=== PATIENT | male | born 1985 | race Caucasian/White ===

== ENCOUNTER 2017-01-26 12:52 | Outpatient (CLI) | payer MEDICAID | END 2017-01-26 12:53 | disposition home or self-care (01) | DX: E55.9 Vitamin D deficiency, unspecified (principal); Z79.899 Other long term (current) drug therapy ==

== ENCOUNTER 2017-07-28 20:14 | Outpatient (CLI) | payer MEDICAID ==
[2017-07-28 19:13] LABS: MEAN CORPUSCULAR VOLUME 87.2 fL (80.0-94.0); MEAN PLATELET VOLUME 9.3 fL (7.4-11.4); NUCLEATED RED BLOOD CELLS AUTO 0.1 /100WBC
[2017-07-28 19:43] LABS: ALBUMIN/GLOBULIN RATIO 1.9 (1.0-2.2); BILIRUBIN,TOTAL 0.5 mg/dL (0.2-1.0); BUN - BLOOD UREA NITROGEN 9 mg/dL (6-20); CALCIUM 9.9 mg/dL (8.5-10.3); CARBON DIOXIDE - CO2 30 mmol/L (21-32); CHLORIDE 103 mmol/L (101-111); CHOL/HDL RATIO 4.3 (<5.0); CHOLESTEROL 162 mg/dL; CREATININE 0.9 mg/dL (0.6-1.2); GFR - MDRD 98 (>89); GLUCOSE 86 mg/dL (70-100); HDL CHOLESTEROL 38 mg/dL; LDL/HDL RATIO 1.7 (<3.6); POTASSIUM 3.7 mmol/L (3.5-5.0); SODIUM 141 mmol/L (135-145); TRIGLYCERIDES 290 mg/dL; VLDL CHOLESTEROL 58 mg/dL
[2017-07-28 19:44] LABS: BASOPHILS % (AUTO) 0.6 %; EOSINOPHILS # (AUTO) 0.2 10^3/uL (0.0-0.7); EOSINOPHILS % (AUTO) 3.1 %; HCT - HEMATOCRIT 44.9 % (42.0-52.0); HGB - HEMOGLOBIN 15.6 g/dL (14.0-18.0); LYMPHOCYTES # (AUTO) 2.1 10^3/uL (1.5-3.5); LYMPHOCYTES % (AUTO) 36.1 %; MEAN CORPUSCULAR HEMOGLOBIN 30.2 pg (27.0-31.0); MEAN CORPUSCULAR HGB CONC 34.6 g/dL (32.0-36.0); MONOCYTES # (AUTO) 0.6 10^3/uL (0.0-1.0); MONOCYTES % (AUTO) 10.1 %; NEUTROPHILS # (AUTO) 2.9 10^3/uL (1.5-6.6); NEUTROPHILS % (AUTO) 50.1 %; RED BLOOD COUNT 5.15 10^6/uL (4.70-6.10); RED CELL DISTRIBUTION WIDTH 12.4 % (12.0-15.0); UNCORRECTED WHITE BLOOD COUNT 5.8 x10^3/uL; WHITE BLOOD COUNT 5.8 x10^3/uL (4.8-10.8)
== END 2017-07-28 20:15 | disposition home or self-care (01) ==
LOC: LAB.N 20:14
PROVIDERS: ATTEND Physician Assistant
DX: Z00.00 Encounter for general adult medical examination without abnormal findings (principal)
CPT/HCPCS: 36415; 80050; 80061

== ENCOUNTER 2019-02-04 12:34 | Outpatient (CLI) | payer MEDICAID ==
[2019-02-04 19:14] LABS: BASOPHILS % (AUTO) 0.7 %; EOSINOPHILS # (AUTO) 0.2 10^3/uL (0.0-0.7); EOSINOPHILS % (AUTO) 3.6 %; HGB - HEMOGLOBIN 16.5 g/dL (14.0-18.0); LYMPHOCYTES # (AUTO) 1.6 10^3/uL (1.5-3.5); LYMPHOCYTES % (AUTO) 31.5 %; MEAN CORPUSCULAR HEMOGLOBIN 29.3 pg (27.0-31.0); MEAN CORPUSCULAR HGB CONC 33.9 g/dL (32.0-36.0); MEAN CORPUSCULAR VOLUME 86.3 fL (80.0-94.0); MEAN PLATELET VOLUME 9.5 fL (7.4-11.4); MONOCYTES # (AUTO) 0.6 10^3/uL (0.0-1.0); MONOCYTES % (AUTO) 11.7 %; NEUTROPHILS # (AUTO) 2.7 10^3/uL (1.5-6.6); NEUTROPHILS % (AUTO) 52.5 %; PLT - PLATELET COUNT 194 10^3/uL (130-450); RED BLOOD COUNT 5.65 10^6/uL (4.70-6.10); RED CELL DISTRIBUTION WIDTH 12.7 % (12.0-15.0); WHITE BLOOD COUNT 5.1 x10^3/uL (4.8-10.8)
[2019-02-04 19:47] LABS: ALBUMIN 4.6 g/dL (3.2-5.5); ALBUMIN/GLOBULIN RATIO 1.6 (1.0-2.2); BILIRUBIN,TOTAL 0.8 mg/dL (0.2-1.0); CALCIUM 9.2 mg/dL (8.5-10.3); CREATININE 0.9 mg/dL (0.6-1.2); TOTAL PROTEIN 7.4 g/dL (6.7-8.2)
[2019-02-04 20:00] LABS: THYROID STIMULATING HORMONE 1.46 uIU/mL (0.34-5.60)
[2019-02-04 20:11] LABS: FOLATE 11.93 ng/mL (5.90 - >24.8)
== END 2019-02-04 23:59 | disposition home or self-care (01) ==
LOC: LAB.N 12:34
PROVIDERS: ATTEND Nurse Practitioner
DX: R53.83 Other fatigue (principal); E55.9 Vitamin D deficiency, unspecified
CPT/HCPCS: 36415; 80050; 82306; 82607; 82746

== ENCOUNTER 2019-12-14 08:57 | Emergency (ER) | payer MEDICAID ==
[2019-12-14 09:12] VITALS: BP 114/110
--- NOTE | 2019-12-14 09:24 | ED Physician Documentation ---
PD HPI LOWER EXT INJURY - Stated complaint Stated Complaint: L BIG TOE PX - Chief complaint Chief Complaint: Ext Problem - History obtained from History obtained from: Patient - History of Present Illness PD HPI LOW EXT INJURY LOCATION: Left, Toe (great) Type of injury: Other (felt there was ingrown nail, with tenderness and pain. Tried to trim nail, but developed redness and swelling of the area.) Where injury occurred: Home Timing - onset: How many weeks ago (1) Timing - duration: Weeks (1) Timing - details: Gradual onset, Still present Worsened by: Palpating Associated symptoms: Swelling, Discolored Similar symptoms before: Has not had sx before Review of Systems Constitutional: denies: Fever, Chills Neurologic: denies: Focal weakness, Numbness PD PAST MEDICAL HISTORY - Past Medical History Respiratory: Asthma Psych: Panic attacks - Past Surgical History Past Surgical History: No - Present Medications Home Medications: Ambulatory Orders Medication Instructions Recorded Confirmed Albuterol Sulfate [Ventolin Hfa] 1 puffs INH DAILY 04/24/16 06/04/16 Fluticasone 44 Mcg [Flovent] 1 puffs INH DAILY 04/24/16 06/04/16 Propranolol [Inderal] 20 mg PO BID 04/24/16 06/04/16 Lorazepam [Ativan] 1 mg PO Q8HR PRN #20 tablet 06/04/16 Doxycycline Monohydrate 100 mg PO BID #14 tablet 12/14/19 Ibuprofen [Motrin] 600 mg PO TID PRN #25 tab 12/14/19 Mupirocin 1 applic TP TID #15 g 12/14/19 - Allergies Allergies/Adverse Reactions: Allergies Allergy/AdvReac Type Severity Reaction Status Date / Time Penicillins Allergy Rash Verified 12/14/19 09:12 - Social History Does the pt smoke?: No Smoking Status: Never smoker Does the pt drink ETOH?: No Does the pt have substance abuse?: No - Immunizations Immunizations are current?: Yes PD ED PE NORMAL - Vitals Vital signs reviewed: Yes - General General: Alert and oriented X 3, No acute distress, Well developed/nourished - Derm Derm: Normal color, Warm and dry - Extremities Extremities: Other (left great toe with redness and swelling around medial nail corner, with redness toward the IP joint area. No discharge. Nail corner is slightly ingrown still. ) - Neuro Neuro: No motor deficit, No sensory deficit Results - Vitals Vitals: Vital Signs - 24 hr 12/14/19 09:09 Temperature 37.0 C Heart Rate 116 H Respiratory 20 Rate Blood Pressure 114/110 H O2 Saturation 96 Oxygen O2 Source Room air PD MEDICAL DECISION MAKING - ED course Complexity details: considered differential (there was still some small ingrown part of nail to side, and was trimmed out with simple scissors. ), d/w patient Departure - Departure Disposition: Home, Self Care Clinical Impression: Paronychia Cellulitis, toe Qualifiers: Laterality: left Qualified Code(s): L03.032 - Cellulitis of left toe Condition: Stable Record reviewed to determine appropriate education?: Yes Instructions: ED Paronychia Ch Prescriptions: Doxycycline Monohydrate 100 mg PO BID #14 tablet Ibuprofen [Motrin] 600 mg PO TID PRN #25 tab PRN Reason: Pain Mupirocin 1 applic TP TID #15 g Comments: Warm soaks or towels to 3 times a day for the toe and apply some mupirocin antibiotic ointment. Ibuprofen 2-3 times a day for pain and inflammation. Add Tylenol if needed. Doxycycline antibiotic twice daily for for 5 days till this seems all better. Recheck if not improved over the next few days. Discharge Date/Time: 12/14/19 11:04
[2019-12-14] MEDS ORDERED: ACETAMINOPHEN 325 MG TABLET PO STA (09:57)
[2019-12-14] MEDS ORDERED: DOXYCYCLINE 100 MG TABLET PO STA (09:57)
[2019-12-14] MEDS ORDERED: IBUPROFEN 600 MG TABLET PO STA (09:57)
[2019-12-14] MEDS ORDERED: MUPIROCIN 2% OINT 1 GM TOP STA (09:58)
== END 2019-12-14 11:04 | disposition home or self-care (01) ==
LOC: ED 08:57
DX: L03.032 Cellulitis of left toe (principal); L60.0 Ingrowing nail; Z88.0 Allergy status to penicillin
CPT/HCPCS: 99283; A9270

== ENCOUNTER 2020-01-09 10:52 | Outpatient (CLI) | payer MEDICAID ==
[2020-01-09 19:05] LABS: BASOPHILS % (AUTO) 0.7 %; EOSINOPHILS # (AUTO) 0.2 10^3/uL (0.0-0.7); EOSINOPHILS % (AUTO) 3.1 %; HGB - HEMOGLOBIN 15.8 g/dL (14.0-18.0); LYMPHOCYTES # (AUTO) 2.1 10^3/uL (1.5-3.5); LYMPHOCYTES % (AUTO) 39.3 %; MEAN CORPUSCULAR HEMOGLOBIN 28.1 pg (27.0-31.0); MEAN CORPUSCULAR HGB CONC 32.4 g/dL (32.0-36.0); MEAN CORPUSCULAR VOLUME 86.7 fL (80.0-94.0); MEAN PLATELET VOLUME 11.1 fL (7.4-11.4); MONOCYTES # (AUTO) 0.5 10^3/uL (0.0-1.0); MONOCYTES % (AUTO) 9.8 %; NEUTROPHILS # (AUTO) 2.5 10^3/uL (1.5-6.6); NEUTROPHILS % (AUTO) 46.7 %; PLT - PLATELET COUNT 230 10^3/uL (130-450); RED BLOOD COUNT 5.63 10^6/uL (4.70-6.10); RED CELL DISTRIBUTION WIDTH 13.5 % (12.0-15.0); WHITE BLOOD COUNT 5.4 x10^3/uL (4.8-10.8)
[2020-01-09 19:27] LABS: ALBUMIN 4.5 g/dL (3.2-5.5); ALBUMIN/GLOBULIN RATIO 1.7 (1.0-2.2); BILIRUBIN,TOTAL 0.6 mg/dL (0.2-1.0); TOTAL PROTEIN 7.2 g/dL (6.7-8.2)
== END 2020-01-09 23:59 | disposition home or self-care (01) ==
LOC: LAB.N 10:52
PROVIDERS: ATTEND Nurse Practitioner Gerontology
DX: Z00.00 Encounter for general adult medical examination without abnormal findings (principal); E55.9 Vitamin D deficiency, unspecified; R53.83 Other fatigue; K21.9 Gastro-esophageal reflux disease without esophagitis
CPT/HCPCS: 36415; 80053; 82306; 85025

== ENCOUNTER 2020-11-19 08:00 | Outpatient (CLI) | payer MEDICAID ==
[2020-11-19 18:03] LABS: BASOPHILS % (AUTO) 0.4 %; EOSINOPHILS # (AUTO) 0.2 10^3/uL (0.0-0.7); EOSINOPHILS % (AUTO) 3.4 %; HGB - HEMOGLOBIN 16.5 g/dL (14.0-18.0); LYMPHOCYTES # (AUTO) 1.7 10^3/uL (1.5-3.5); LYMPHOCYTES % (AUTO) 29.5 %; MEAN CORPUSCULAR HEMOGLOBIN 30.4 pg (27.0-31.0); MEAN CORPUSCULAR VOLUME 92.3 fL (80.0-94.0); MEAN PLATELET VOLUME 10.6 fL (7.4-11.4); MONOCYTES # (AUTO) 0.7 10^3/uL (0.0-1.0); MONOCYTES % (AUTO) 12.9 %; NEUTROPHILS % (AUTO) 53.6 %; PLT - PLATELET COUNT 222 10^3/uL (130-450); RED BLOOD COUNT 5.42 10^6/uL (4.70-6.10); RED CELL DISTRIBUTION WIDTH 12.6 % (12.0-15.0); WHITE BLOOD COUNT 5.6 x10^3/uL (4.8-10.8)
[2020-11-19 18:22] LABS: ALBUMIN 4.5 g/dL (3.2-5.5); ALBUMIN/GLOBULIN RATIO 1.5 (1.0-2.2); BILIRUBIN,TOTAL 0.5 mg/dL (0.2-1.0); CREATININE 0.9 mg/dL (0.6-1.2); CRP - C-REACTIVE PROTEIN 1.7 mg/dL (0-1.0); TOTAL PROTEIN 7.5 g/dL (6.7-8.2)
== END 2020-11-19 08:01 | disposition home or self-care (01) ==
LOC: LAB.WCP 08:00
PROVIDERS: ATTEND Family Medicine
DX: G43.909 Migraine, unspecified, not intractable, without status migrainosus (principal); E55.9 Vitamin D deficiency, unspecified
CPT/HCPCS: 36415; 80053; 82306; 85025; 85651; 86140

== ENCOUNTER 2022-01-31 13:26 | Outpatient (CLI) | payer MEDICAID ==
--- NOTE | 2022-01-31 16:42 | XRAY Report ---
PROCEDURE: Lumbar Spine 2 View INDICATIONS: BACK PAIN, LUMBAR TECHNIQUE: 3 views of the lumbar spine were acquired. COMPARISON: None. FINDINGS: Bones: 5 pap-yon-aeasins vertebrae are present. There is normal bony alignment. No vertebral body compression fractures. No suspicious bony lesions. Soft tissues: Overlying bowel gas pattern is normal. No suspicious soft tissue calcifications. Inc reased stool in the right colon consistent with constipation. IMPRESSION: Normal lumbar spine Reviewed by: Fly Calix on 01/31/2022 4:41 PM PST Approved by: Fly Calix on 01/31/2022 4:41 PM PST Station ID: [id number]
--- NOTE | 2022-01-31 16:43 | XRAY Report ---
PROCEDURE: Thoracic Spine 2 View INDICATIONS: THORACIC BACK PAIN TECHNIQUE: 3 views of the thoracic spine were acquired. COMPARISON: None. FINDINGS: Bones: No fractures or dislocations. No suspicious bony lesions. 12 pairs of ribs are noted, and a ppear intact where visualized. Soft tissues: No paravertebral stripe thickening. IMPRESSION: Normal thoracic spine. Reviewed by: Fly Calix on 01/31/2022 4:42 PM [facility] Approved by: Fly Calix on 01/31/2022 4:42 PM [facility] Station ID: [id number]
== END 2022-01-31 13:27 | disposition home or self-care (01) ==
LOC: DI.N 13:26
PROVIDERS: ATTEND Nurse Practitioner
DX: M54.6 Pain in thoracic spine (principal); M54.50 Low back pain, unspecified

== ENCOUNTER 2023-01-02 10:31 | Outpatient (CLI) | payer MEDICAID ==
[2023-01-02 10:42] LABS: BASOPHILS # (AUTO) 0.1 10^3/uL (0.0-0.1); EOSINOPHILS # (AUTO) 0.2 10^3/uL (0.0-0.7); EOSINOPHILS % (AUTO) 4.2 %; LYMPHOCYTES # (AUTO) 1.7 10^3/uL (1.5-3.5); LYMPHOCYTES % (AUTO) 32.4 %; MEAN CORPUSCULAR HEMOGLOBIN 29.4 pg (27.0-31.0); MEAN CORPUSCULAR HGB CONC 33.3 g/dL (32.0-36.0); MEAN CORPUSCULAR VOLUME 88.2 fL (80.0-94.0); MEAN PLATELET VOLUME 9.5 fL (7.4-11.4); MONOCYTES # (AUTO) 0.6 10^3/uL (0.0-1.0); MONOCYTES % (AUTO) 11.6 %; NEUTROPHILS # (AUTO) 2.6 10^3/uL (1.5-6.6); NEUTROPHILS % (AUTO) 50.6 %; PLT - PLATELET COUNT 233 10^3/uL (130-450); RED BLOOD COUNT 5.78 10^6/uL (4.70-6.10); RED CELL DISTRIBUTION WIDTH 13.1 % (12.0-15.0); WHITE BLOOD COUNT 5.2 x10^3/uL (4.8-10.8)
[2023-01-02 11:08] LABS: ALBUMIN 4.6 g/dL (3.2-5.5); ALBUMIN/GLOBULIN RATIO 1.5 (1.0-2.2); ALKALINE PHOSPHATASE 47 IU/L (42-121); ALT ALANINE AMINOTRANSFERASE 27 IU/L (10-60); AST ASPARTATE AMINOTRANSFERASE 24 IU/L (10-42); BILIRUBIN,TOTAL 0.6 mg/dL (0.2-1.0); BUN - BLOOD UREA NITROGEN 11 mg/dL (6-20); CALCIUM 9.9 mg/dL (8.5-10.3); CARBON DIOXIDE - CO2 30 mmol/L (21-32); CHLORIDE 98 mmol/L (101-111); CHOL/HDL RATIO 4.1 (<5.0); CHOLESTEROL 200 mg/dL; CREATININE 0.9 mg/dL (0.6-1.2); GFR - MDRD 95 (>89); GLUCOSE 107 mg/dL (70-100); HDL CHOLESTEROL 49 mg/dL; LDL CHOLESTEROL,CALCULATED 114 mg/dL; LDL/HDL RATIO 2.3 (<3.6); POTASSIUM 3.9 mmol/L (3.5-5.0); SODIUM 139 mmol/L (135-145); TOTAL PROTEIN 7.7 g/dL (6.7-8.2); TRIGLYCERIDES 186 mg/dL; VLDL CHOLESTEROL 37 mg/dL
[2023-01-02 11:13] LABS: THYROID STIMULATING HORMONE 2.91 uIU/mL (0.34-5.60)
== END 2023-01-02 10:32 | disposition home or self-care (01) ==
LOC: LAB 10:31
PROVIDERS: ATTEND Nurse Practitioner
DX: G43.909 Migraine, unspecified, not intractable, without status migrainosus (principal); R53.83 Other fatigue; Z13.220 Encounter for screening for lipoid disorders
CPT/HCPCS: 36415; 80050; 80061; 82607; 83721

== ENCOUNTER 2023-10-26 11:40 | Outpatient (CLI) | payer MEDICAID ==
--- NOTE | 2023-10-26 15:10 | XRAY Report ---
PROCEDURE: Foot 3 View RT INDICATIONS: RIGHT GREAT TOE PAIN TECHNIQUE: 3 views of the foot were acquired. COMPARISON: None. FINDINGS: Bones: No fractures or dislocations. No suspicious bony lesions. Soft tissues: No suspicious soft tissue calcifications or masses. IMPRESSION: No acute bony abnormality. Reviewed by: Yrn Ken MD on 10/26/2023 3:09 PM [facility] Approved by: Yrn Ken MD on 10/26/2023 3:09 PM [facility] Station ID: [id number]
--- NOTE | 2023-10-26 15:11 | XRAY Report ---
PROCEDURE: Knee 4 View RT INDICATIONS: RIGHT KNEE PAIN TECHNIQUE: 4 views of the knee(s) were acquired. COMPARISON: None. FINDINGS: Bones: No fractures or dislocations. No suspicious bony lesions. Soft tissues: No knee joint effusion. No suspicious soft tissue calcifications or masses. IMPRESSION: No acute bony abnormality. No significant joint effusion. Reviewed by: Yrn Ken MD on 10/26/2023 3:10 PM PST Approved by: Yrn Ken MD on 10/26/2023 3:10 PM PST Station ID: [id number]
--- NOTE | 2023-10-26 15:11 | XRAY Report ---
PROCEDURE: Foot 3 View LT INDICATIONS: LEFT FOOT PAIN TECHNIQUE: 2 views of the foot were acquired. COMPARISON: None. FINDINGS: Bones: No fractures or dislocations. No suspicious bony lesions. Soft tissues: No suspicious soft tissue calcifications or masses. IMPRESSION: No acute bony abnormality. Reviewed by: Yrn Ken MD on 10/26/2023 3:10 PM [facility] Approved by: Yrn Ken MD on 10/26/2023 3:10 PM [facility] Station ID: [id number]
== END 2023-10-26 11:41 | disposition home or self-care (01) ==
LOC: DI 11:40
PROVIDERS: ATTEND Nurse Practitioner
DX: M79.674 Pain in right toe(s) (principal); M79.672 Pain in left foot; M25.561 Pain in right knee

== ENCOUNTER 2024-03-15 11:47 | Outpatient (CLI) | payer MEDICAID | END 2024-03-15 23:59 | disposition critical access hospital (66) | LOC: EMS 11:47 | DX: M54.50 Low back pain, unspecified (principal) | CPT/HCPCS: A0425; A0429; A0999 ==

== ENCOUNTER 2024-03-15 11:51 | Emergency (ER) | payer MEDICAID ==
--- NOTE | 2024-03-15 12:10 | ED Physician Documentation ---
PD HPI BACK PAIN - Stated complaint Stated Complaint: BACK PAIN - Chief complaint Chief Complaint: Back Pain - Additional information Additional information: 38-year-old male who is on disability due to panic disorder presents emergency department via EMS for lower back pain. Patient says that he injured his back about 4 years ago attempting to lift something heavy and feels overall that he is fully recovered from that but within the last for 5 days he has noticed a flare of pain in his lower back. Patient describes the pain as sharp stabbing and it is at the point where his spine meets his pelvis. He says that it is painful enough to bring him to his knees because of the severity of the pain. Patient says if he is laying still on his back it is not very severe but any ambulation or movement or weightbearing activity shoots pain up to a 7 out of 10. He has had no recent fevers or chills denies any history of back surgeries or IV drug use no incontinence of bowel or bladder. Patient has not taken any ibuprofen today for his back pain but yesterday he took Tylenol and ibuprofen with little to no relief. PD PAST MEDICAL HISTORY - Past Medical History Past Medical History: Yes Cardiovascular: None Respiratory: Asthma Neuro: None Endocrine/Autoimmune: None GI: GERD : None HEENT: None Psych: Anxiety, Panic attacks Musculoskeletal: None Derm: None - Past Surgical History Past Surgical History: No - Present Medications Home Medications: Ambulatory Orders Medication Instructions Recorded Confirmed Albuterol Sulfate [Ventolin Hfa] 1 puffs INH DAILY 04/24/16 03/15/24 Fluticasone 44 Mcg [Flovent] 1 puffs INH DAILY 04/24/16 03/15/24 Amitriptyline [Elavil] 25 - 50 mg PO HS PRN 03/15/24 03/15/24 Cyclobenzaprine [Flexeril] 10 mg PO TID PRN 6 Days #20 tablet 03/15/24 Pantoprazole [Protonix] 40 mg ORAL DAILY 03/15/24 03/15/24 - Allergies Allergies/Adverse Reactions: Allergies Allergy/AdvReac Type Severity Reaction Status Date / Time Penicillins Allergy Rash Verified 03/15/24 12:00 - Social History Does the pt smoke?: No Smoking Status: Never smoker Does the pt drink ETOH?: Yes Does the pt have substance abuse?: No - Immunizations Immunizations are current?: Yes - POLST Patient has POLST: No PD ED PE NORMAL - Vitals Vital signs reviewed: Yes - General General: Alert and oriented X 3, No acute distress, Well developed/nourished - HEENT HEENT: Atraumatic, PERRL, EOMI - Neck Neck: No bony TTP - Cardiac Cardiac: RRR - Respiratory Respiratory: No respiratory distress, Clear bilaterally - Abdomen Abdomen: Normal bowel sounds - Back Back: No CVA TTP, No spinal TTP - Derm Derm: Normal color, Warm and dry, No rash - Extremities Extremities: No deformity, No edema, No calf tenderness / cord - Free text exam Free text exam: Neck and back are without deformity, external skin changes, or signs of trauma. Curvature of the cervical, thoracic, and lumbar spine are within normal limits. Bony features of the shoulders and hips are of equal height bilaterally. Posture is upright, gait is smooth, steady, and within normal limits. No tenderness noted on palpation of the spinous processes. Spinous processes are midline. Cervical, thoracic, and lumbar paraspinal muscles are not tender and are without spasm. Straight leg raise test is negative bilaterally. Sensation to the upper and lower extremities is normal bilaterally. No clonus is noted. Electric Meter Tester strength is normal bilaterally. Dorsi/plantar flexion is normal bilaterally. Results - Vitals Vitals: Vital Signs - 24 hr 03/15/24 03/15/24 12:00 15:14 Temperature 36.6 C Heart Rate 78 92 Respiratory 18 15 Rate Blood Pressure 158/110 H 122/97 H O2 Saturation 99 97 Oxygen O2 Source Nasal cannula PD Medical Decision Making - ED course ED course: This patient presents with back pain most consistent with muscle spasms. Differential diagnoses includes lumbago versus musculoskeletal spasm / strain versus sciatica. Less likely sciatica as straight leg raise test was negative. No back pain red flags on history or physical. Presentation not consistent with malignancy (lack of history of malignancy, lack of B symptoms), fracture (no trauma, no bony tenderness to palpation), cauda equina (no bowel or urinary incontinence/retention, no saddle anesthesia, no distal weakness), viscus perfor ation, osteomyelitis or epidural abscess (no IVDU, vertebral tenderness), renal colic, pyelonephritis (afebrile, no CVAT, no urinary symptoms). Given the clinical picture, no indication for imaging at this time. Patient was able to ambulate he asked for a front wheel walker prior to discharge although I did not believe this to be necessary I feel the patient would be okay for him to use this for couple days at home But do not use it longer than a couple days as I believe that this could cause more atrophy and weakness that is not necessary for the patient. He was given a prescription of muscle relaxer sent to his preferred pharmacy his mother provided a ride home. All questions answered safe for discharge Return precautions given patient told to follow-up with primary care provider for physical therapy referral. Departure - Departure Disposition: Home, Self Care Clinical Impression: Lumbago Qualifiers: Chronicity: acute Back pain laterality: midline Sciatica presence: without sciatica Qualified Code(s): M54.50 - Low back pain, unspecified Instructions: ED Back Care Tips, ED Spasm Back No Trauma Prescriptions: Cyclobenzaprine [Flexeril] 10 mg PO TID PRN 6 Days #20 tablet PRN Reason: Spasms Comments: Thank you for trusting us with your care. Is very important that you are continuing to stay active and move frequently to help with recovery of your lower back pain. Please alternate between Tylenol and ibuprofen for pain and discomfort you can take 1000 mg of Tylenol every 8 hours do not exceed 4 g in a 24-hour period you can take 600 mg of ibuprofen every 6 hours. Start keeping track of what time you are taking each of these medications so that you can be diligent and not missing any doses. I am also starting you on a medication called Flexeril this is a muscle relaxer you can take this up to 3 times a day for pain and discomfort and back pain. Please follow-up with your primary care provider for further evaluation and physical therapy referral. Alternate between 20 minutes of ice 20 minutes of heat and continue to push yourself to do some gentle range of motion exercises to help with your lower back pain. Wishing you a speedy recovery. Discharge Date/Time: 03/15/24 15:27
[2024-03-15] MEDS: ACETAMINOPHEN 325 MG TABLET PO STA (12:34)
[2024-03-15] MEDS: KETOROLAC 30 MG/ML VIAL IM STA (12:35)
[2024-03-15] MEDS: CYCLOBENZAPRINE 10 MG TABLET PO STA (12:35)
[2024-03-15] MEDS: oxyCODONE 5 MG TABLET PO STA (14:24)
[2024-03-15 15:23] VITALS: BP 122/97; O2SAT 97
== END 2024-03-15 15:27 | disposition home or self-care (01) ==
LOC: EDUNIT# → ED 11:51
DX: M54.50 Low back pain, unspecified (principal); Z79.899 Other long term (current) drug therapy
CPT/HCPCS: 96372; 99283; 99284; A9270